=== PATIENT | female | born 1960 | race Caucasian/White ===

== ENCOUNTER 2017-02-18 18:41 | Emergency (ER) | payer BC, OTHER ==
[~2017-02-18] VITALS: Ht 170.2 cm; Wt 49.9 kg
[2017-02-18] MEDS ORDERED: NOHOMEMEDICATIONS (18:55)
[2017-02-18 19:20] VITALS: BP 121/67
== END 2017-02-18 19:24 | disposition home or self-care (01) ==
LOC: ER 18:41
DX: S71.052A Open bite, left hip, initial encounter (principal); S71.051A Open bite, right hip, initial encounter; W57.XXXA Bitten or stung by nonvenomous insect and other nonvenomous arthropods, initial encounter; Y93.89 Activity, other specified; Y92.89 Other specified places as the place of occurrence of the external cause; Y99.8 Other external cause status